=== PATIENT | female | born 1930 | race Caucasian/White ===

== ENCOUNTER 2016-11-09 19:17 | Inpatient (IN) | payer MEDICAID ==
[~2016-11-09] VITALS: Ht 160 cm; Wt 68.3 kg
[~2016-11-09 19:17] MED LIST: ACET325T53 PO; ASPI-605 PO; ATOR40TA PO; CARV6.25 PO; CLOP75TA2 PO; CRAN3875 PO; CRAN425C PO; DOCU-270 PO; FERR-58 PO; FURO-144 PO; HYDR-3658 PO; ISOS20TA; LACT1CAP61 PO; MAGN400O4 PO; PANT40TA4 PO; VALS40TA4 PO; ZOLP5TAB2 PO
--- NOTE | 2016-11-09 19:31 | NUR ---
PT A/OX4 BREATHING EFFORTLESSLY ON ROOM AIR, PT STATES SHE HAD A HEADACHE EARLIER AND HER BP WAS EVELATED SO CALLED 911, PT STATES SHE FEELING BETTER AND IS NOT HAVING A HEADACHE. PT ON MONITOR, FAMILY AT BEDSIDE, MADE AWARE WILL CONTINUE TO MONITOR.
[2016-11-09 20:13] LABS: BASOPHILS % (AUTO) 0.3 % (0.0-2.0); EOSINOPHILS % (AUTO) 0.4 % (0.0-6.0); HEMATOCRIT 41 % (33-45); HEMOGLOBIN 13.7 g/dL (11.5-14.8); LYMPHOCYTES # (AUTO) 0.9 /CMM (0.8-4.8); LYMPHOCYTES % (AUTO) 7.9 % (20.0-44.0); MEAN CORPUSCULAR HEMOGLOBIN 33 PG (26.0-33.0); MEAN CORPUSCULAR HGB CONC 33 g/dl (31.0-36.0); MEAN CORPUSCULAR VOLUME 98 fL (82-100); MONOCYTES # (AUTO) 1.1 /CMM (0.1-1.30); MONOCYTES % (AUTO) 9.3 % (2.0-12.0); NEUTROPHILS # (AUTO) 9.9 /CMM (1.8-8.9); NEUTROPHILS % (AUTO) 82.1 % (43.0-81.0); PLATELET COUNT (AUTO) 305 /CMM (150-450); RED BLOOD CELL COUNT(AUTO) 4.17 MIL/uL (4.0-5.2); WHITE BLOOD COUNT (AUTO) 11.9 K/uL (4.3-11.0)
[2016-11-09 20:22] LABS: CALCIUM, SERUM 9.1 mg/dL (8.5-10.1); POTASSIUM 3.8 mmol/L (3.5-5.1)
[2016-11-09 20:26] LABS: INR 1.09 (0.87-1.13); PROTHROMBIN TIME 11.4 SECS (9.5-12.7)
[2016-11-09 21:00] LABS: TROPONIN I 2.03 ng/mL (0.00-0.056)
[2016-11-09] MEDS ORDERED: ASPIRIN 81 MG TAB.CHEW PO ONE (21:30)
--- NOTE | 2016-11-09 21:47 | NUR ---
DR GODFREY ON THE PHONE WITH DR SNOW
[2016-11-09] MEDS ORDERED: ASPIRIN 81 MG TAB.CHEW ONE (21:48)
[2016-11-09] MEDS ORDERED: ENOXAPARIN SODIUM 80 MG/0.8 ML DISP.SYRIN SQ ONE (21:51)
[2016-11-09] MEDS ORDERED: ENOXAPARIN SODIUM 60 MG/0.6 ML DISP.SYRIN SQ ONE (22:00)
--- NOTE | 2016-11-09 22:00 | NUR ---
MARTINEZ RN NOTES RECEIVED PT ON WILVER FROM ER. A/O X3, SOMALI SPEAKING ONLY. ON ROOM AIR, TOLERATING FAIRLY, O2 SAT AT 94%. TELE READS SR AT 92 BPM. PT DENIES CHEST PAIN AT THIS TIME, TROPONIN 2.030. COMPLAINING OF PAIN AT LEFT CALF, NOTED WITH EDEMA AND SWELLING. IV SITE AT LEFT AND RIGHT WRIST 20G, SALINE LOCKED. PT ON CARDIAC DIET, NO S/S OF SWALLOW DIFFICULTY WHEN DRINKING WATER. PT IN DIAPER AND ABLE TO USE BSC WITH ASSISTANCE. CALL LIGHT WITHIN REACH, SIDE RAILS X3, BED ALARM ON, HOB ELEVATED [address] GODFREY AT BEDSIDE, DISCUSSION POC WITH PT'S DAUGHTER. DR GODFREY MADE AWARE OF PT'S COMPLAINT OF LEFT CALF PAIN AND FOUL SMELLING URINE. Addendum: 11/10/16 at 0700 by CHAPITO ZEPEDA RN CORRECTION: TELE READS CONTROLLED A-FIB, 92 BPM.
[2016-11-09] MEDS ORDERED: ACETAMINOPHEN 325 MG TABLET PO PRN ×2 (22:30)
[2016-11-09] MEDS ORDERED: MAGNESIUM HYDROXIDE 30 ML UDC PO PRN (22:30)
[2016-11-09] MEDS ORDERED: Z GUARD REMEDY 2 OZ OINT TP PRN (22:30)
[2016-11-09] MEDS ORDERED: NITROGLYCERIN PACKET 1 GM PACKET ONE (22:30)
[2016-11-09] MEDS ORDERED: MAG HYDROX/AL HYDROX/SIMETH 30 ML UDC PO PRN (22:30)
[2016-11-09] MEDS ORDERED: ZOLPIDEM TARTRATE 5 MG TABLET PO PRN (22:30)
[2016-11-09] MEDS ORDERED: ONDANSETRON HCL/PF 4 MG/2 ML VIAL IVP PRN (22:30)
[2016-11-09] MEDS: NITROGLYCERIN PACKET 1 GM PACKET TOP SCH (22:47)
[2016-11-09 23:36] VITALS: BP 125/70
[2016-11-10] VITALS (33 sets, daily range): BP systolic 77–151; BP diastolic 36–110
[2016-11-10 00:09] LABS: APPEARANCE,URINE SL CLOUDY (CLEAR); BILIRUBIN,URINE NEGATIVE (NEGATIVE); BLOOD, URINE 2+ Ery/uL (NEGATIVE); COLOR,URINE YELLOW (YELLOW); KETONES,URINE NEGATIVE (NEGATIVE); LEUKOCYTE ESTERASE ,URINE 1+ (NEGATIVE); NITRITE, URINE POSITIVE (NEGATIVE); PROTEIN,URINE 1+ mg/dl (NEGATIVE); UGLUCOSE NEGATIVE (NEGATIVE)
[2016-11-10 00:19] LABS: ADD URINE CULTURE YES; BACTERIA,URINE 3+ /HPF (None Seen); RBC,URINE 51-80 /HPF (0-2); SQUAMOUS EPITHELIAL CELL,UR Few /HPF (None Seen)
[2016-11-10] MEDS ORDERED: HYDROCODONE/APAP 5/325MG 1 EACH TABLET ONE (01:25)
[2016-11-10] MEDS: HYDROCODONE/APAP 5/325MG 1 EACH TABLET PO PRN ×2 (01:29→23:16)
--- NOTE | 2016-11-10 02:35 | NUR ---
MARTINEZ RN NOTES PT COMPLAINING OF LEFT CALF PAIN. LEFT LEG ASSESSED AND NOTED WITH WARM CALF AND PALE FOOT AND TOES. UNABLE TO PALPATE DORSALIS PEDIS PULSE. DR GODFREY CONTACTED AND MADE AWARE, DR CAME TO BEDSIDE AND ASSESSED LEFT LEG. ORDERED MORPHINE 2 MG IVP FOR PAIN AND STAT VENOUS DOPPLER OF LEFT LEG. UNABLE TO FIND DORSALIS PEDIS PULSE USING DOPPLER. CONTACTED RADIOLOGY AND MADE AWARE OF STAT ORDER FOR DOPPLER, ON-CALL DATA COLLECTION ASSOCIATE TO BE CONTACTED BY RADIOLOGY.
[2016-11-10] MEDS ORDERED: MORPHINE SULFATE INJ 2 MG/ML DISP.SYRIN IV PRN (03:00)
[2016-11-10] MEDS ORDERED: MORPHINE SULFATE INJ 2 MG/ML DISP.SYRIN ONE (03:09)
--- NOTE | 2016-11-10 04:10 | NUR ---
MARTINEZ RN NOTES ENGINE DISPATCHER AT BEDSIDE PERFORMING ARTERIAL AND VENOUS DUPLEX OF LEFT EXTREMITY.
--- NOTE | 2016-11-10 04:45 | NUR ---
MARTINEZ RN NOTES CONTACTED DR GODFREY WITH DUPLEX RESULTS. NEW ORDERS RECEIVED FOR HEPARIN DRIP NON ACS AND TRANSFER TO ICU. DR GODFREY WILL CONTACT VASCULAR SURGEON FOR CONSULT IN AM.
[2016-11-10] MEDS ORDERED: HEPARIN INFUSION/D5W 500 ML IV PRN (05:00)
[2016-11-10] MEDS ORDERED: HEPARIN INFUSION/D5W 500 ML IV ONE (05:09)
[2016-11-10] MEDS ORDERED: IV SET PRIMARY PUMP SET 1 EA INFUS.SET MC ONE ×3 (05:28→18:08)
[2016-11-10] MEDS ORDERED: HEPARIN SODIUM, PORCINE 5000 UNITS/1 ML VIAL ONE (05:29)
[2016-11-10] MEDS ORDERED: HEPARIN SODIUM,PORCINE/PF 50 UNIT/5 ML DISP.SYRIN IV ONE (05:30)
[2016-11-10] MEDS ORDERED: HEPARIN SODIUM, PORCINE 5000 UNITS/1 ML VIAL IV ONE (06:00)
--- NOTE | 2016-11-10 06:15 | NUR ---
MARTINEZ RN NOTES HEPARIN BOLGIVEN AND DRIP STARTED. REPORT GIVEN TO AYLEEN ARITA IN ICU. PT TRANSFERRED VIA BED USING ACLS PROTOCOL. VSS.
--- NOTE | 2016-11-10 06:41 | NUR ---
RELEASE MANAGER RCD PT FROM [facility] A/O 4 LATVIAN SPEAKING ONLY. NSR ON MONITOR. O2 2L VIA NC.NO DISTRESS NOTED. HEPARIN DRIP 1206 UNITS/HRL 24.12ML/HR. PTT TO BE DONE AT NOON. 2D ECHO PENDING. PRELIMINARY ARTERIAL DOPPLER SHOWS NO FLOW FROM KNEE DOWN. LEFT DORSALIS PEDIS PULSE ABSENT. CONTINUE TO MONITOR. Addendum: 11/10/16 at 0658 by AYLEEN CHARLES RN AFIB ON MONITOR
[2016-11-10] MEDS ORDERED: CT SWABBABLE VALVE TRANS SET 1 EA INFUS.SET MC ONE (07:50)
[2016-11-10] MEDS ORDERED: IV NS 0.9% 250 ML IV ONE ×2 (07:50→18:00)
[2016-11-10] MEDS ORDERED: IOHEXOL-350 100 ML VIAL IV ONE (07:50)
[2016-11-10 07:53] LABS: CALCIUM, SERUM 8.4 mg/dL (8.5-10.1); MAGNESIUM 1.7 mg/dL (1.8-2.4); PHOSPHORUS 3.5 mg/dL (2.5-4.9); POTASSIUM 3.8 mmol/L (3.5-5.1)
[2016-11-10 08:02] LABS: HEMATOCRIT 32 % (33-45); HEMOGLOBIN 10.9 g/dL (11.5-14.8); MEAN CORPUSCULAR HEMOGLOBIN 34 PG (26.0-33.0); MEAN CORPUSCULAR HGB CONC 34 g/dl (31.0-36.0); MEAN CORPUSCULAR VOLUME 99 fL (82-100); MONOCYTES % (AUTO) 11.6 % (2.0-12.0); NEUTROPHILS % (AUTO) 80.1 % (43.0-81.0); PLATELET COUNT (AUTO) 275 /CMM (150-450); RDW COEFFICIENT OF VARIATION 12.6 (11.5-15.0); RED BLOOD CELL COUNT(AUTO) 3.25 MIL/uL (4.0-5.2); WHITE BLOOD COUNT (AUTO) 9.3 K/uL (4.3-11.0)
[2016-11-10 08:03] LABS: BASOPHILS % (AUTO) 0.3 % (0.0-2.0); LYMPHOCYTES # (AUTO) 0.7 /CMM (0.8-4.8); MONOCYTES # (AUTO) 1.1 /CMM (0.1-1.30); NEUTROPHILS # (AUTO) 7.5 /CMM (1.8-8.9)
[2016-11-10] MEDS ORDERED: VALSARTAN 40 MG TABLET PO SCH (09:00)
[2016-11-10] MEDS ORDERED: FUROSEMIDE 40 MG TABLET PO SCH (09:00)
--- NOTE | 2016-11-10 09:00 | NUR ---
CT ANGIO ABD AND BLE RUN OFF COMPLETED, PT TOLERATED PROCEDURE WELL. NOW BACK TO THE ROOM VSS, DENIES PAIN DENIES SOB.
--- NOTE | 2016-11-10 10:00 | NUR ---
RADIOLOGY CONTACTED TO FIND OUT RESULT OF CT ANGIO, BUT HAS NOT BEEN TRANSCRIBE YET. [facility] WILL FOLLOW UP.
[2016-11-10] MEDS: ASPIRIN 325 MG TABLET PO SCH (10:06)
[2016-11-10] MEDS: FERROUS SULFATE (325 MG) 325 MG/TAB TABLET PO SCH (10:07)
[2016-11-10] MEDS: CLOPIDOGREL BISULFATE 75 MG TABLET PO SCH (10:07)
[2016-11-10] MEDS: DOCUSATE SODIUM 100 MG CAPSULE PO SCH ×2 (10:07→19:14)
[2016-11-10] MEDS: PANTOPRAZOLE 40 MG TABLET.DR PO SCH (10:07)
[2016-11-10] MEDS: CARVEDILOL 6.25 MG TABLET PO SCH ×2 (10:07→17:00)
[2016-11-10] MEDS: NITROGLYCERIN PACKET 1 GM PACKET TOP SCH ×2 (10:30→21:32)
--- NOTE | 2016-11-10 10:50 | NUR ---
CT ANGIO AND ARTERIAL STUDY RESULTS FAXED TO DR ALCALA'S OFFICE. DR ALCALA NOTIFIED OVER THE PHONE.
--- NOTE | 2016-11-10 10:53 | NUR ---
WOUND CARE CONSULT: PT PRESENTS WITH DRY ABRASION TO LEFT SIDE OF FACE. PT ABLE TO ASSIST WITH TURNING AND REPOSITIONING AND IS CONTINENT AT THIS TIME. ALL SKIN PROTECTION MEASURES IN PLACE. DISCUSSED WITH NURSING STAFF. PT ON COMFORT GEL MATTRESS. ASHLEY SCORE IS 20. WILL SEE PRN. JIMENEZ IN AGREEMENT WITH PLAN OF CARE. Addendum: 11/10/16 at 1055 by JIMENEZ OBREGON WNDNU Amended: Links added.
[2016-11-10] MEDS: Magnesium 1GM/D5W 100ML PREMIX 100 ML IV SCH ×2 (12:10→13:44)
--- NOTE | 2016-11-10 12:30 | NUR ---
SALES REPRESENTATIVE CONSULTANT AT THE BEDSIDE. SECOND ATTEMPT TO OBTAIN BLOOD FOR COAG STUDY. PT ADMITS SHE IS IN PAIN FROM MULTIPLE STICKS, PT NOTED TO BE IN AFIB 110-120 BP 149/106 THAN 117/36 DR MA UPDATED ON AFIB 120TH VIA TEXT MESSAGE. NO NEW ORDERS.
--- NOTE | 2016-11-10 13:05 | NUR ---
DR ZHU IS AT BEDSIDE. DISCUSSED PT PROGRESS WITH DAUGHTER AND PT. NO SURGERY INDICATED AT THIS TIME.
[2016-11-10] MEDS ORDERED: PHENYLEPHRINE 40 MG in IV D5W 250 ML IV PRN (14:30)
--- NOTE | 2016-11-10 14:54 | NUR ---
NO RESULT AVAILABLE FOR COAG STUDY FROM LAB. DR ZHU NOTIFIED. HE STATES THAT IT IS PK TO CONTINUE HEPARIN AT CURET RATE. OK TO PLACE PICC LINE.
--- NOTE | 2016-11-10 15:25 | NUR ---
APTT [address] ZHU NOTIFIED. NEW ORDER: HOLD HEPARIN FOR 1H. THAN DECREASE RATE BY 200 UNITS/H. RESUME AT 1006 UNITS/H.
--- NOTE | 2016-11-10 16:25 | NUR ---
HEPARIN RESTARTED AT 1006 UNITS/H.
--- NOTE | 2016-11-10 19:00 | NUR ---
250 BOLUS NS X 2 GIVEN BP NOW 105/55
--- NOTE | 2016-11-10 21:08 | NUR ---
[employer] INTERMODAL TRUCK DRIVER - REC'D PT. AT BS FROM EMILY ARITA. PT.IS ON HEPARIN GTT. AT 1006 UNITS/HR. ALL IV PORTS ARE CDI. PT. SHOWS NO DISTRESS NOR DISCOMFORT. PT'S DAUGHTER EMILY IS AT BS. DAUGHTER INTERPRETS FOR MOTHER. ORDER TO PLACE WILLIAMSON CATHETER FROM DR. HORTON. RN & WRAPPING MACHINE OPERATOR PLACED WILLIAMSON INTO PT. W/O INCIDENCE. PT.IS ON O2/2L/NC. MOM ADM. FOR CONSTIPATION. CONT.POC
[2016-11-10 21:13] LABS: APPEARANCE,URINE TURBID (CLEAR); BILIRUBIN,URINE NEGATIVE (NEGATIVE); BLOOD, URINE 2+ Ery/uL (NEGATIVE); COLOR,URINE YELLOW (YELLOW); KETONES,URINE NEGATIVE (NEGATIVE); LEUKOCYTE ESTERASE ,URINE 2+ (NEGATIVE); NITRITE, URINE NEGATIVE (NEGATIVE); PH,URINE 5.5 (5.0-8.0); PROTEIN,URINE TRACE mg/dl (NEGATIVE); UGLUCOSE NEGATIVE (NEGATIVE)
[2016-11-10 21:18] LABS: ADD URINE CULTURE YES; BACTERIA,URINE Few /HPF (None Seen); SQUAMOUS EPITHELIAL CELL,UR Few /HPF (None Seen); WBC,URINE 81-100 /HPF (0-3)
[2016-11-10] MEDS ORDERED: ATORVASTATIN 40 MG TABLET PO SCH (22:00)
[2016-11-10 23:14] LABS: INR 1.12 (0.87-1.13); PROTHROMBIN TIME 12.1 SECS (9.5-12.7)
[2016-11-11] VITALS (25 sets, daily range): BP systolic 77–134; BP diastolic 43–84
--- NOTE | 2016-11-11 02:00 | NUR ---
GOLF COURSE STARTER - AT 2200 A APTT WAS DRAWN BY LAB. RESULTS ARE 113 SEC. ACCORDING TO THE HEPARIN PROTOCOL, RN SHUT OFF HEPARIN GTT. X ONE HR. & RESTART IT 2OO UNITS LESS THAN LAST INFUSION RATE. SO GTT. RATE WENT FROM 1006 UNITS/HR. TO 806 UNITS/HR. VERIFIED W/FOREIGN SERVICE OFFICER RENEE. PT'S DAUGHTER WENT HOME. PT. IS RESTING COMFORTABLY, UNTIL THE BP CUFF COMES ON & PT. ATTEMPTS TO RIP IT OFF. NEXT APTT TO BE DRAWN IS AT 4AM. PT. WAS ADM. ONE NORCO TAB FOR LLE PAIN. THIS HELPED PT. FALL ASLEEP. DOPPLER TO LLE COULD ONLY P/U LEFT POPLITEAL PULSE. NO NACHO.PED. NOR POST. TIB. PULSE HEARD. CONT.POC.
[2016-11-11 05:05] LABS: BASOPHILS % (AUTO) 0.3 % (0.0-2.0); EOSINOPHILS % (AUTO) 0.5 % (0.0-6.0); HEMATOCRIT 30 % (33-45); HEMOGLOBIN 10.4 g/dL (11.5-14.8); LYMPHOCYTES # (AUTO) 1.2 /CMM (0.8-4.8); LYMPHOCYTES % (AUTO) 12.1 % (20.0-44.0); MEAN CORPUSCULAR HEMOGLOBIN 33 PG (26.0-33.0); MEAN CORPUSCULAR HGB CONC 34 g/dl (31.0-36.0); MEAN CORPUSCULAR VOLUME 97 fL (82-100); MONOCYTES # (AUTO) 1.8 /CMM (0.1-1.30); MONOCYTES % (AUTO) 18.3 % (2.0-12.0); NEUTROPHILS # (AUTO) 6.8 /CMM (1.8-8.9); NEUTROPHILS % (AUTO) 68.8 % (43.0-81.0); PLATELET COUNT (AUTO) 273 /CMM (150-450); RDW COEFFICIENT OF VARIATION 13.1 (11.5-15.0); RED BLOOD CELL COUNT(AUTO) 3.13 MIL/uL (4.0-5.2); WHITE BLOOD COUNT (AUTO) 9.9 K/uL (4.3-11.0)
[2016-11-11 05:23] LABS: CALCIUM, SERUM 7.7 mg/dL (8.5-10.1); CREATININE 0.9 mg/dL (0.6-1.3); MAGNESIUM 2.1 mg/dL (1.8-2.4); POTASSIUM 3.7 mmol/L (3.5-5.1)
[2016-11-11 05:40] LABS: INR 1.07 (0.87-1.13); PROTHROMBIN TIME 11.5 SECS (9.5-12.7)
[2016-11-11 05:58] LABS: BAND % (MANUAL) 1 % (0.0-5.0); LYMPHOCYTES % (MANUAL) 11 % (16-48); MONOCYTES % (MANUAL) 17 % (0-11.0); NEUTROPHILS % (MANUAL) 71 (42-76)
[2016-11-11 05:59] LABS: PLATELET ESTIMATE ADEQUATE
[2016-11-11] MEDS ORDERED: IV NS 0.9% 1,000 ML IV PRN (06:27)
[2016-11-11] MEDS ORDERED: RIVAROXABAN 10 MG TABLET PO SCH (06:30)
[2016-11-11] MEDS ORDERED: RIVAROXABAN 10 MG TABLET ONE (06:42)
--- NOTE | 2016-11-11 06:54 | NUR ---
LAWN CARETAKER - DR. MA HERE TO ASSESS PT. ORDERS REC'D. XARELTO 20MG/PO STARTED AT 06:30AM. PTT CAME BACK AT 68 SEC. ACCORDING TO HEPARIN PROTOCOL, KEEP THE SAME RATE AT 806 SEC. ORDERS TO TRANSFER TO TELE NOTED. PT. SLEPT FOR MOST OF THE MORNING. NO PHYSICAL CHANGES FROM PREVIOUS ASSESSMENT. PT. STATES "PAIN" TO LLE. WILL MONITOR CLOSELY. NO DOPPLER PULSES HEARD TO LEFT POST.TIB. OR DORSAL PEDAL PULSE SITES. + DOPPLER READING TO LEFT POPLITEAL SITE. CONT. POC.
[2016-11-11 07:54] LABS: THYROID STIMULATING HORMONE 2.757 uIU/mL (0.358-3.74)
[2016-11-11] MEDS: FERROUS SULFATE (325 MG) 325 MG/TAB TABLET PO SCH (11:01)
[2016-11-11] MEDS: CLOPIDOGREL BISULFATE 75 MG TABLET PO SCH (11:01)
[2016-11-11] MEDS: ASPIRIN 325 MG TABLET PO SCH (11:01)
[2016-11-11] MEDS: DOCUSATE SODIUM 100 MG CAPSULE PO SCH (11:01)
[2016-11-11] MEDS: CARVEDILOL 6.25 MG TABLET PO SCH ×2 (11:02→16:06)
[2016-11-11] MEDS: PANTOPRAZOLE 40 MG TABLET.DR PO SCH (11:02)
--- NOTE | 2016-11-11 12:00 | NUR ---
Anish here to see pt. vss, also he is notified that ana cristina pulse noted now on the left foot, and marked with red marker.
[2016-11-11] MEDS ORDERED: BISACODYL SUPP (10 MG) 10 MG/SUPP.RECT SUPP.RECT RC PRN (12:30)
--- NOTE | 2016-11-11 14:00 | NUR ---
Pt transferred to room 119-1 vss, denies pain, sob. Daughter at bedside.
[2016-11-11] MEDS ORDERED: CLOP75TA2 PO (14:42)
[2016-11-11] MEDS ORDERED: ATOR40TA PO (14:42)
[2016-11-11] MEDS ORDERED: FERR325T28 PO (14:42)
[2016-11-11] MEDS ORDERED: Rivaroxaban PO (14:42)
[2016-11-11] MEDS ORDERED: ACET325T53 PO (14:42)
[2016-11-11] MEDS ORDERED: ALLA266C2 TP (14:42)
[2016-11-11] MEDS ORDERED: PANT40TA2 PO (14:42)
[2016-11-11] MEDS ORDERED: CARV6.252 PO (14:42)
--- NOTE | 2016-11-11 17:45 | NUR ---
HEALTHCARE ASSOCIATE ENDING NOTES PT DC PAPERWORK COMPLETE, EXIT CARE PROVIDED WITH TEACHING, REPORT GIVEN TO [facility] TO NAIMA ARITA, WILLIAMSON CATH REMOVED AND PLACED ON DIAPER, ALL IV SITES REMOVED, NO S.S OF INFILTRATION OR BLEEDING NOTED, ALL SECURE, MED RECON PROVIDED WITH DC PAPERWORK SIGNED, BELONGINGS LIST SIGNED AND COMPLETE, PT LEFT VIA GURNEY WITH EMT, PT STABLE FOR TRANSFER LAST BP 108/48, HR 78. LEFT WITH DAUGHTER CECILE.
[2016-11-12] MEDS ORDERED: RIVAROXABAN 15 MG TABLET PO SCH (17:00)
== END 2016-11-11 18:15 | DRG 190 ==
LOC: ER 19:19 → TELE1 22:02 → TELE-TD 22:27 → ICU 11-10 06:10 → TELE1 11-11 14:40
PROVIDERS: ADMIT Internal Medicine; ATTEND Internal Medicine
PROC: 05H533Z Insertion of Infusion Device into Right Subclavian Vein, Percutaneous Approach (ICD-10-PCS; principal; 2016-11-10)
DX: I21.4 Non-ST elevation (NSTEMI) myocardial infarction (principal); E43 Unspecified severe protein-calorie malnutrition; G93.40 Encephalopathy, unspecified; I27.2 Other secondary pulmonary hypertension; E88.09 Other disorders of plasma-protein metabolism, not elsewhere classified; G30.9 Alzheimer's disease, unspecified; I50.9 Heart failure, unspecified; I11.0 Hypertensive heart disease with heart failure; F02.80 Dementia in other diseases classified elsewhere, unspecified severity, without behavioral disturbance, psychotic disturbance, mood disturbance, and anxiety; I48.91 Unspecified atrial fibrillation; I25.5 Ischemic cardiomyopathy; I25.10 Atherosclerotic heart disease of native coronary artery without angina pectoris; I25.2 Old myocardial infarction; K21.9 Gastro-esophageal reflux disease without esophagitis; I73.9 Peripheral vascular disease, unspecified; Z87.440 Personal history of urinary (tract) infections; Z87.891 Personal history of nicotine dependence; Z96.643 Presence of artificial hip joint, bilateral; M19.90 Unspecified osteoarthritis, unspecified site; Z86.73 Personal history of transient ischemic attack (TIA), and cerebral infarction without residual deficits; M48.06 Spinal stenosis, lumbar region; M62.50 Muscle wasting and atrophy, not elsewhere classified, unspecified site; I77.1 Stricture of artery; Z98.61 Coronary angioplasty status; E78.5 Hyperlipidemia, unspecified
CPT/HCPCS: 36415; 36569; 70450-TC; 71010-TC; 80048-TC; 80061-TC; 81000-TC; 82306; 82728-TC; 83540-TC; 83735-TC; 84100-TC; 84439-TC; 84443-TC; 84484-TC; 85025-TC; 85730-TC; 87081-TC; 87086-TC; 87186-TC; 93307-TC; 93925-TC; 93971-TC; A4606; J1642; J1644; J1650; J2270; J3475; J7030; J7050; Q9967; Z7610